=== PATIENT | male | born 1980 | race Caucasian/White ===

== ENCOUNTER 2020-04-24 12:56 | Outpatient (CLI) | payer OTHER | END 2020-04-24 12:57 | disposition home or self-care (01) | LOC: COV 12:56 | PROVIDERS: ATTEND Family Medicine | DX: R05 Cough (principal); R06.02 Shortness of breath; R68.83 Chills (without fever); R19.7 Diarrhea, unspecified; R09.81 Nasal congestion; Z20.828 Contact with and (suspected) exposure to other viral communicable diseases ==

== ENCOUNTER 2020-05-03 14:18 | Outpatient (CLI) | payer OTHER ==
--- NOTE | 2020-05-03 15:58 | XRAY Report ---
PROCEDURE: Chest 2 View X-Ray INDICATIONS: DYSPNEA, UNSPECIFIED TECHNIQUE: 2 view(s) of the chest. COMPARISON: None. FINDINGS: Surgical changes and devices: None. Lungs and pleura: No pleural effusions or pneumothorax. Lungs are difficult to accurately assess du e to the reduced inspiratory volume and body habitus. When this is taken into account there likely is no CHF or pneumonia. Mediastinum: Mediastinal contours are normal. Heart size is normal. Bones and chest wall: No suspicious bony abnormalities. Soft tissues appear unremarkable. IMPRESSION: A definite source of current shortness of breath is not found. The heart size is not enl arged. The inspiratory volume, however, is reduced. Reviewed by: Van Saunders MD on 05/03/2020 3:57 PM PDT Approved by: Van Saunders MD on 05/03/2020 3:57 PM PDT Station ID: [id number]
== END 2020-05-03 14:19 | disposition home or self-care (01) ==
LOC: DI.S 14:18
PROVIDERS: ATTEND Physician Assistant
DX: R06.00 Dyspnea, unspecified (principal)
CPT/HCPCS: 71046

== ENCOUNTER 2022-10-14 14:34 | Outpatient (CLI) | payer OTHER ==
--- NOTE | 2022-10-14 15:16 | XRAY Report ---
PROCEDURE: Foot 3 View LT INDICATIONS: LEFT FOOT PAIN TECHNIQUE: 3 views of the foot were acquired. COMPARISON: None FINDINGS: Bones: No fractures or dislocations. No suspicious bony lesions. Soft tissues: No tibiotalar joint effusion. Achilles tendon appears normal. IMPRESSION: No displaced fractures. Reviewed by: Keith Oliveros on 10/14/2022 3:14 PM PST Approved by: Keith Oliveros on 10/14/2022 3:14 PM [facility] Station ID: [id number]
== END 2022-10-14 14:35 | disposition home or self-care (01) ==
LOC: DI.S 14:34
PROVIDERS: ATTEND Nurse Practitioner
DX: M79.672 Pain in left foot (principal)
CPT/HCPCS: 36415; 84550

== ENCOUNTER 2023-12-03 08:00 | Outpatient (CLI) | payer OTHER, MEDICAID ==
--- NOTE | 2023-12-03 13:48 | XRAY Report ---
PROCEDURE: Chest 2V INDICATIONS: BRONCHITIS TECHNIQUE: 2 views of the chest were acquired. COMPARISON: 05/03/2020 FINDINGS: Surgical changes and devices: None. Lungs and pleura: Chronic coarsening of interstitial markings bilaterally. Bilateral bronchial wall thickening. No dense consolidation, effusion, or pneumothorax. Mediastinum: Mediastinal contours appear normal. Heart size is normal. Bones and chest wall: No suspicious bony lesions. Overlying soft tissues appear unremarkable. IMPRESSION: Findings suggesting chronic bronchitis without significant change. No airspace opacity or pleural effusion. Reviewed by: Lina Padilla MD on 12/03/2023 1:46 PM PDT Approved by: Lina Padilla MD on 12/03/2023 1:46 PM PDT Station ID: [id number]
== END 2023-12-03 23:59 | disposition home or self-care (01) ==
LOC: DI.S 08:00
PROVIDERS: ATTEND Emergency Medicine
DX: J20.9 Acute bronchitis, unspecified (principal)

== ENCOUNTER 2024-04-06 08:00 | Outpatient (CLI) | payer OTHER, MEDICAID ==
--- NOTE | 2024-04-06 16:30 | XRAY Report ---
Lumbar Spine 2-3V HISTORY: 43 years of age, LEFT LEG PAIN/LEFT LUMBAR RADICULOPATHY TECHNIQUE: Lumbar Spine 2-3V COMPARISON: None. 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 Minimal dextrocurvature of the lumbar spine. Mild retrolisthesis of L1- L2, L2-L3 and L3-L4. Mild inferior endplate fracture of L1, age indeterminant. Multilevel, mild degen erative disc disease of the lumbar spine. Mild lower lumbar facet arthropathy. Reviewed by: Obdulia Mari MD on 04/06/2024 4:11 PM PDT Approved by: Obdulia Mari MD on 04/06/2024 4:11 PM PDT Station ID: [id number]
== END 2024-04-06 23:59 | disposition home or self-care (01) ==
LOC: DI.S 08:00
PROVIDERS: ATTEND Registered Nurse
DX: M79.605 Pain in left leg (principal); M54.16 Radiculopathy, lumbar region

== ENCOUNTER 2024-04-20 12:38 | Outpatient (CLI) | payer OTHER, MEDICAID ==
--- NOTE | 2024-04-20 20:33 | CT Report ---
PROCEDURE: Lumbar Spine WO INDICATIONS: LUMBAR RADICULOPATHY TECHNIQUE: Noncontrast 3 mm thick sections acquired from the T12 level to the sacrum. Sagittal and coronal refo rmats were constructed. For radiation dose reduction, the following was used: automated exposure co ntrol, adjustment of mA and/or kV according to patient size. COMPARISON: None. FINDINGS: Image quality: Excellent. Bones: There is normal bony alignment. No acute vertebral body compression fractures. No suspiciou s lytic or blastic bony lesions. Central spinal caliber is of normal overall caliber. No pars defec ts. T12-L1: Normal in appearance. L1-L2: Normal in appearance. L2-L3: No canal stenosis or foraminal stenosis L3-L4: Disc bulge. Facet hypertrophy. No canal stenosis or foraminal stenosis. L4-L5: Disc bulge. Facet hypertrophy. No canal stenosis or foraminal stenosis. L5-S1: Disc bulge. Facet hypertrophy. Borderline canal stenosis. No significant foraminal stenosis. Soft tissues: No retroperitoneal masses or hematomas. Visualized aorta is normal in caliber. IMPRESSION: 1. No acute bony abnormality. 2. Lower lumbar facet arthropathy. 3. Borderline canal stenosis at L5-S1. Reviewed by: Ramone Farrar MD on 04/20/2024 8:32 PM PDT Approved by: Ramone Farrar MD on 04/20/2024 8:32 PM PDT Station ID: [id number]
== END 2024-04-20 12:39 | disposition home or self-care (01) ==
LOC: DI 12:38
PROVIDERS: ATTEND Registered Nurse
DX: M51.36 Other intervertebral disc degeneration, lumbar region (principal); M47.816 Spondylosis without myelopathy or radiculopathy, lumbar region; M51.37 Other intervertebral disc degeneration, lumbosacral region; M47.817 Spondylosis without myelopathy or radiculopathy, lumbosacral region; M48.07 Spinal stenosis, lumbosacral region